=== PATIENT | male | born 1995 | race Caucasian/White ===

== ENCOUNTER 2021-01-05 06:53 | Outpatient (CLI) | payer BC, SELFPAY ==
--- NOTE | ~2021-01-05 | US_ITS ---
EXAMINATION: US abdomen complete DATE: 01/05/2021 07:26 INDICATION: Abdominal pain. TECHNIQUE: Multiple grayscale and Doppler ultrasound images of the abdomen were obtained. COMPARISON: None FINDINGS: The spleen is normal in size. The kidneys are normal in size. Abdominal aorta is normal in caliber. Inferior vena cava is normal. The visualized portions of the head and body of the pancreas a re normal. The liver is normal without focal lesion. No liver surface nodularity. There is normal roberto w in main portal vein. The gallbladder is normal in size. No gallstones or gallbladder wall thickenin g. There was no sonographic Claudio sign. The common duct is normal and measures 3 mm. IMPRESSION: 1. Normal complete abdomen ultrasound. Reviewed, dictated and finalized at location B.
== END 2021-01-05 06:54 | disposition home or self-care (01) ==
LOC: ANHIMG 06:55
PROVIDERS: PCP Internal Medicine; Visit Provider Internal Medicine
DX: R10.9 Unspecified abdominal pain (principal)
CPT/HCPCS: 76700

== ENCOUNTER → 2021-02-06 01:05 | Outpatient (CLI) | payer BC, SELFPAY ==
[2021-02-06 19:56] LABS: SARS-CoV-2 RNA PCR Negative
== END ==
PROVIDERS: PCP Internal Medicine; Visit Provider Internal Medicine Gastroenterology
DX: Z01.812 Encounter for preprocedural laboratory examination (principal); Z20.822 Contact with and (suspected) exposure to COVID-19
CPT/HCPCS: C9803; U0003; U0005

== ENCOUNTER 2021-02-09 02:48 | Day surgery (SDC) | payer BC, SELFPAY ==
[2021-02-01 13:29] VITALS: BMI 25.9
[2021-02-09 10:23] VITALS: BP 129/69; PULSE 69; RESP 18; TEMP 36.6; O2SAT 99; BMI 27.1
[2021-02-09] MEDS: LACTATED RINGERS 1,000 ML 150 ML IV CONT (10:32)
--- NOTE | 2021-02-09 10:44 | WPDANESEPPF ---
Anes - Initial Pre Proc Eval Procedure: Operation Date: 02/09/21 11:45 Proposed Procedures p Esophagogastroduodenoscopy - Surya Heart MD Date/Time: 02/09/21 10:44 Surgeon: Surya Heart MD Pre Op Diagnosis: abdominal pain Patient Data Age: 25 Gender: M Height: 5 ft 10 in Weight: 85.7 kg Last Vital Signs Temp 98 F 02/09/21 10:23 Pulse 69 02/09/21 10:23 Resp 18 02/09/21 10:23 BP 129/69 02/09/21 10:23 Pulse Ox 99 02/09/21 10:23 Allergies Allergy/AdvReac Type Severity Reaction Status Date / Time No Known Allergies Allergy Verified 02/09/21 10:22 Home Medications Medication Instructions Recorded Confirmed Type No Home Medications 12/23/20 02/01/21 History Patient hx anesthesia problems: none Family hx anesthesia problems: none PMFSH Past Medical History Medical History (Updated 02/09/21 @ 10:44 by Alex Crockett MD) Asthma Family History Family History (Updated 12/23/20 @ 13:21 by Edda Tolliver MA) Sibling Asthma Social History Social History (Updated 12/23/20 @ 13:27 by Edda Tolliver MA) Smoking status: Never smoker Second hand tobacco smoke exposure: No Alcohol intake: never Gender identity (if verbalized by the patient): Male Anes - Eval Final PreProcedure Day of Procedure 02/09/21 10:44 Patient weight: normal Heart: regular rate and rhythm Lungs: clear to auscultation Airway: Mallampati scale class II Neurological: alert and oriented Last oral intake: >/= 8 hours ASA classification: II Emergent: no Anesthetic plan: proceed Anesthesia type and monitoring: general GIVS and standard monitoring Informed Consent: The patient's anesthetic plan and its attendant risks and benefits were discussed with the patient/family/POA. Questions were solicited and answers provided to the satisfaction of the patient/family/POA.
--- NOTE | 2021-02-09 11:05 | P.HP_ITS ---
History of Present Illness History of Present Illness Consent: Risks, benefits, and alternatives have been discussed and questions answered. Patient agrees to proceed with procedure. Abdominal ultrasound normal. Chief complaint: abdominal pain Narrative: Jordon Elizabeth is a 25 year old male with upper abdominal pain, never had egd, antacids helped some Review of Systems Constitutional: Constitutional: Denies headache(s) and Denies weakness Eyes: Eyes: Denies blurry vision ENT: Reports Normal hearing present, Denies headache(s) and Denies neck pain Cardiovascular: Cardiovascular: Denies chest pain and Denies dyspnea Respiratory: Respiratory: Denies dyspnea Gastrointestinal: Gastrointestinal: Reports no additional gastrointestinal complaints Genitourinary: Genitourinary: Denies dysuria Musculoskeletal: Musculoskeletal: Denies neck pain Integumentary/Breasts: Skin/Breast: Denies dry skin Neurologic: Reports Normal hearing present, Denies headache(s) and Denies weakness Psychiatric: Psychiatric: Denies anxiety Endocrine: Endocrine: Denies change in body appearance Hematologic/Lymphatic: Hematologic/Lymphatic: Denies easy bleeding Allergic/Immunologic: Allergic/Immunologic: Denies urticaria [facility] Past Medical History Medical History (Updated 02/09/21 @ 11:06 by Surya Heart MD) Asthma Upper abdominal pain Family History Family History (Updated 12/23/20 @ 13:21 by Edda Tolliver MA) Sibling Asthma Social History Social History (Updated 12/23/20 @ 13:27 by Edda Tolliver MA) Smoking status: Never smoker Second hand tobacco smoke exposure: No Alcohol intake: never Gender identity (if verbalized by the patient): Male Meds Home Medications and Allergies Home Medications Medication Instructions Recorded Confirmed Type No Home Medications 12/23/20 02/01/21 History Allergies Allergy/AdvReac Type Severity Reaction Status Date / Time No Known Allergies Allergy Verified 02/09/21 10:22 Vital Signs Vital Signs - 24 hr 02/09/21 10:23 Temperature 98 F Pulse Rate 69 Respiratory Rate 18 Blood Pressure 129/69 Pulse Oximetry 99 Exam Const: General: comfortable and no acute distress HENMT: General nose exam: Normal nares present Eyes: General: appearance normal, both eyes and all related structures Neck: Neck: no JVD Resp: Auscultation: clear to auscultation bilaterally Cardio: Rate: regular rate Rhythm: regular rhythm GI: Inspection: non-distended GI Palp: Yes Soft to palpation Skin: General skin exam: normal color Neuro: General: gait normal Speech: normal speech Extrem: General: normal to inspection Psych: Mental Status: mental status grossly normal Assessment and Plan Assessment and plan (1) Upper abdominal pain: Code(s): R10.10 - Upper abdominal pain, unspecified Status: Acute Assessment and Plan: egd with bx
[2021-02-09 11:21] VITALS: BP 103/77; PULSE 76; RESP 15; O2SAT 97
[2021-02-09 11:31] VITALS: BP 108/70; PULSE 82; RESP 15; O2SAT 99
[2021-02-09 11:41] VITALS: BP 110/77; PULSE 60; RESP 17; O2SAT 99
== END 2021-02-09 12:04 | disposition home or self-care (01) ==
PROVIDERS: PCP Internal Medicine; Visit Provider Internal Medicine Gastroenterology
PROC: 0DJ08ZZ Inspection of Upper Intestinal Tract, Via Natural or Artificial Opening Endoscopic (ICD-10-PCS; CPT 43235; principal; 2021-02-09 11:45)
DX: R10.10 Upper abdominal pain, unspecified (principal); K29.50 Unspecified chronic gastritis without bleeding; J45.909 Unspecified asthma, uncomplicated
CPT/HCPCS: 43239; 88305; J2704; J7120

== ENCOUNTER 2024-03-27 14:21 | Outpatient (CLI) | payer BC, SELFPAY | END 2024-03-27 14:22 | disposition home or self-care (01) | LOC: ANHAUDASC 14:22 | PROVIDERS: Visit Provider Otolaryngology | DX: H93.11 Tinnitus, right ear (principal); H90.6 Mixed conductive and sensorineural hearing loss, bilateral | CPT/HCPCS: 92557; 92567 ==